=== PATIENT | male | born 1990 | race Caucasian/White ===

== ENCOUNTER 2024-11-10 13:28 | Outpatient (AMB) | payer MEDICARE, MEDICAID, SELFPAY ==
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
--- OUTSIDE RECORDS SUMMARY | 2024-11-10 14:47 | XMS_ITS | Patient Health Record ---
Author Organization [facility] Address [address] [place] [address] Care Team Providers Care Wool Shearer Name Role Phone Ernie Romero Primary Care Provider Sharita Hastings Unavailable [phone] Allergies Allergen (clinical drug ingredient) Drug/Non Drug Allergy documented on EMR Reaction Allergy Type Onset Date Status cefaclor Cefaclor Unknown Drug Allergy Active clonazepam Klonopin hallucinations Drug Allergy A ctive Reason For Referral No Information Medications Medication SIG (Take, Route, Frequency, Duration) Notes Start Date End Date Status Topiramate 50 MG Oral; Duration: 33 Active Invega 6 MG Oral; Duration: 30 Active buPROPion HCl ER (XL) 300 MG Oral; Duration: 30 Unknown Dexmethylphenidate HCl Active ALPRAZolam 1 MG (Schedule IV Drug) Oral; Duration: 30 Unknown FLUoxetine HCl 20 MG Oral; Duration: 30 Unknown Xanax Active Adderall Active lamoTRIgine 100 MG Oral; Duration: 30 Unknown Wellbutrin Active guanFACINE HCl 2 MG Oral; Duration: 15 Unknown Amphetamine-Dextroamphet ER 30 MG (Schedule II Drug) Oral; Duration: 30 Unknown Prozac Active LaMICtal Active Problems No Known Problems Plan Of Treatment Pending Test Test Name Order Date 70727- Debride <25 sq cm 01/12/2015 44272 I&D ABSCESS- SIMPLE,SINGLE 015 60950 I&D ABSCESS- SIMPLE,SINGLE 015 Insurance Providers Payer Name Payer Address Payer Phone Subscriber Number Group Number Insured Name Patient Relationship to Insured Coverage Start Date Coverage End Date Medicare National [employer] [address] [facility] [place] [address] [id number] Jacob Starks Self - patient is the insured Medical (General) History Medical History History ICD Code Anxiety Arthritis asthma Back,Hip,and Knee pain Broken bones Depression Fibromyalgia Headaches Migraines Neuropathy Psychiatric disorder Sinus conditions Stroke Surgical History Surgery Date(Month/Year) facial cosmetic surgery 08/2010
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
== END 2024-11-10 13:58 | disposition home or self-care (01) ==
PROVIDERS: Visit Provider Registered Nurse
DX: G44.209 Tension-type headache, unspecified, not intractable (principal); G43.909 Migraine, unspecified, not intractable, without status migrainosus; R41.3 Other amnesia
CPT/HCPCS: 99214

== ENCOUNTER → 2024-11-10 13:28 | Outpatient (BNVA) | payer MEDICARE, MEDICAID, SELFPAY | PROVIDERS: Visit Provider Registered Nurse | DX: G44.209 Tension-type headache, unspecified, not intractable (principal); G43.909 Migraine, unspecified, not intractable, without status migrainosus; R41.3 Other amnesia | CPT/HCPCS: 99212 ==

== ENCOUNTER 2024-11-24 13:18 | Outpatient (REF) | payer MEDICARE, MEDICAID, SELFPAY ==
--- NOTE | 2024-11-24 14:32 | EEG_ITS ---
Room performed: 402 Reason: Amnesia, memory changes Medications: alprazolam, amitriptyline, citalopram, gabapentin, lamotrigine, lisdexamfetamine, lurasidone, sumatriptan succinate, topiramate History: Patient reports memory not so good for last few year but really bad within the last year. Patient plans out sequences and then forget the order. Has trouble with word recall. Adjuster And Inspector Comments Photic Stimulation: completed Hyperventilation: omitted Behavioral state: pleasant, cooperative, talkative State of consciousness: awake and drowsy Skull defect: no Sedation: none Handedness: right Description: The waking background activity consists of a moderate voltage posterior 10 hertz alpha frequency that is seen symmetrically and attenuates well with eye opening while low-voltage fast frequencies predominant anteriorly. Photic stimulation is without activation. Hyperventilation was omitted. Patient had facial twitching and tics throughout the record without any abnormal electrical discharges. Impression this waking EEG is within normal limits. The facial twitching and tics did not correlate with any EEG abnormalities. MTDD
--- OUTSIDE RECORDS SUMMARY | 2024-11-24 15:36 | XMS_ITS | Clinical Summary ---
Author Organization [facility] Address [address] [place] [address] Care Team Providers Care Optician Manager Name Role Phone Unavailable Primary Care Provider Unavailabl e Allergies Active Allergy Reactions Criticality Noted Date Comments Cefaclor 02/11/2018 Clonazepam 02/11/2018 Medications Medication Sig Dispensed Refills Start Date End Date Status gabapentin (NEURONTIN) 400 MG capsule Take 800 mg by mouth 3 (three) times a day. 0 Active topiramate (TOPAMAX) 200 MG tablet Take 200 mg by mouth 2 (two) times a day. 0 Active paliperidone (INVEGA) 6 MG 24 hr tablet Take 6 mg by mouth every morning. 0 Active amitriptyline (ELAVIL) tablet 50 mg Take 50 mg by mouth every night at bedtime. 0 Active lamoTRIgine (LaMICtal) 150 MG tablet Take 300 mg by mouth 2 (two) times a day. 0 Active ALPRAZolam (XANAX) 1 MG tablet Take 1 mg by mouth 4 (four) times a day. 0 Active senna-docusate (PERICOLACE) 8.6-50 MG Take 1 tablet by mouth daily. 0 Active Vortioxetine HBr (TRINTELLIX PO) Take 15 mg by mouth. 0 Active amphetamine-dextr oamphetamine (ADDERALL, 30MG,) 30 MG tablet Take 30 mg by mouth daily. 0 Active ondansetron (ZOFRAN) 4 MG tablet Take 1 tablet (4 mg total) by mouth every 8 (eight) hours as needed for up to 18 doses. 18 tablet 0 11/30/2018 Active ibuprofen (ADVIL,MOTRIN) 600 MG tablet Take 1 tablet (600 mg total) by mouth every 6 (six) hours as needed for pain. 30 tablet 0 11/30/2018 Active ferrous sulfate 325 (65 FE) MG tablet Take 325 mg by mouth every morning with breakfast. 0 Active Levomefolate Glucosamine (METHYLFOLATE PO) Take by mouth. 0 Act ayala hydrocortisone (ANUSOL-HC) [address] 1 suppository (25 mg total) rectally 2 (two) times a day. 12 suppository 0 05/17/2019 Active Social History Tobacco Use Types Packs/Day Years Used Date Smoking Tobacco: Former Cigarettes Smokeless Tobacco: Never Alcohol Use Standard Drinks/Week Comments No 0 (1 standard drink = 0.6 oz pur e alcohol) Sex and Gender Information Value Date Recorded Sex Assigned at Male 05/17/2019 6:23 PM EST Gender Identity Male 02/22/2020 9:02 PM EST Sexual Orientation Not on file Last Filed Vital Signs Vital Sign Reading Time Taken Comments Blood Pressure 130/86 05/17/2019 6:11 PM EST Pulse 77 05/17/2019 6:11 PM EST Temperature 36.4 C (97.6 F) 05/17/2019 6:11 PM EST Respiratory Rate 20 05/17/2019 6:11 PM EST Oxygen Saturation 98% 05/17/2019 6:11 PM EST Inhaled Oxygen Concentration - - Weight 81.6 kg (180 lb) 05/17/2019 6:11 PM EST Height 170.2 cm (5' 7 ) 05/17/2019 6:11 PM EST Body Mass Index 28.19 05/17/2019 6:11 PM EST Plan of Treatment Health Maintenance Due Date Last Done Comments Hepatitis B Vaccines (1 of 3 - 3-dose series) 1988 Hepatitis C Screening 1988 COVID-19 Vaccine (#1) 1988 Pneumococcal Vaccine (1 of 2 - PCV) 1994 Depression Screening 2000 BMI Counseling 2006 Preventative Health Evaluation 2006 Tobacco Cessation Counseling 2006 DTap / Tdap / Td (2 - Td or Tdap) 04/25/2023 014 Influenza Vaccine (#1) 2024 RSV Ped < 20 months Aged Out No longe r eligible based on patient's age to complete this topic Jacob Starks Personal/Family Self 1990 [address] [place] [address] Jacob Starks Personal/Family Self 1990 [address] [place] [address]
--- OUTSIDE RECORDS SUMMARY | 2024-11-24 15:36 | XMS_ITS | Patient Health Record ---
Author Organization [facility] Address [address] [facility] [place] [address] Care Team Providers Care Licensed Pesticide Applicator Name Role Phone Ernie Romero Primary Care Provider Sharita Hastings Unavailable [phone] Allergies Allergen (clinical drug ingredient) Drug/Non Drug [...] Treatment Pending Test Test Name Order Date 65873- Debride <25 sq cm 01/12/2015 46003 I&D ABSCESS- SIMPLE,SINGLE 015 42578 I&D ABSCESS- SIMPLE,SINGLE 015 Insurance Providers Payer Name Payer Address Payer Phone Subscriber Number Group Number Insured Name Patient Relationship to Insured Coverage Start Date Coverage End Date Medicare National [employer] [address] [place] [address] [id number] Jacob Starks Self - patient is the insured Medical (General) History Medical History History ICD Code Anxiety Arthritis asthma Back,Hip,and Knee pain Broken bones Depression Fibromyalgia Headaches Migraines Neuropathy Psychiatric disorder Sinus conditions Stroke Surgical History Surgery Date(Month/Year) facial cosmetic surgery 08/2010
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
== END 2024-11-24 13:19 | disposition home or self-care (01) ==
LOC: HO.NEURO 13:18
PROVIDERS: Visit Provider Psychiatry & Neurology Neurology
DX: R41.3 Other amnesia (principal)
CPT/HCPCS: 95816

== ENCOUNTER → 2024-11-24 14:32 | Outpatient (BNV) | payer MEDICARE, MEDICAID, SELFPAY | PROVIDERS: Visit Provider Psychiatry & Neurology Neurology | DX: R41.3 Other amnesia (principal) | CPT/HCPCS: 95816 ==

== ENCOUNTER 2025-02-16 10:59 | Outpatient (AMB) | payer MEDICARE, MEDICAID, SELFPAY ==
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
== END 2025-02-16 11:31 | disposition home or self-care (01) ==
LOC: HO.HSM 11:00
PROVIDERS: PCP Physician Assistant Medical; Visit Provider Registered Nurse
DX: G44.209 Tension-type headache, unspecified, not intractable (principal); G43.909 Migraine, unspecified, not intractable, without status migrainosus; R41.3 Other amnesia
CPT/HCPCS: 99214

== ENCOUNTER → 2025-02-16 10:59 | Outpatient (BNVA) | payer MEDICARE, MEDICAID, SELFPAY | PROVIDERS: PCP Physician Assistant Medical; Visit Provider Registered Nurse | DX: J44.9 Chronic obstructive pulmonary disease, unspecified (principal); F17.210 Nicotine dependence, cigarettes, uncomplicated; R91.1 Solitary pulmonary nodule | CPT/HCPCS: 99212 ==